=== PATIENT | male | born 2000 | race Caucasian/White ===

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

== ENCOUNTER 2023-03-27 19:09 | Emergency (ER) | payer SELFPAY ==
[2023-03-27] VITALS (10 sets, daily range): BP systolic 114–145; BP diastolic 57–114; PULSE 65–108; RESP 16–35; TEMP 36.5–36.8; O2SAT 94–100; BMI 28.7
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
[2023-03-27] MEDS: ETOMIDATE 40MG/20ML VIAL 30 MG IV (19:26)
[2023-03-27] MEDS: SUCCINYLCHOLINE 20MG/ML 10 ML MDV 150 MG IV (19:26)
--- NOTE | 2023-03-27 19:27 | PC.NURSE ---
Dr Edmonds at bedside placing ET tube with Dr Paula assistance. 7.5 ETT, 22 at the teeth
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
[2023-03-27] MEDS: propofoL 100 ML 5.44000000000000039 MG IV ×2 (19:39)
[2023-03-27] MEDS: MIDAZOLAM 2MG/2ML VIAL 2 MG IV (19:39)
--- NOTE | 2023-03-27 19:45 | PC.NURSE ---
TITRATION INCR TO ACHIEVE SEDATION PER MD VERBAL ORDER.CURRENT RATE 20 MCG/HR.
[2023-03-27] MEDS: FENTANYL CITRATE/PF 1,000 MCG in 0.9 % SODIUM CHLORIDE 80 ML 2.5 MCG IV (19:58)
--- NOTE | 2023-03-27 20:00 | PC.NURSE ---
TITRATION CONTINUES TO ACHIEVE SEDATION. TITRATED TO 40, THEN 50 MCG PER NURSING AT BEDSIDE WHILE THIS NURSE IS ARRANGING TRANSPORT.
--- NOTE | 2023-03-27 20:05 | PC.NURSE ---
INCREASED TITRATION TO 30 MCG TO ACHIEVE SEDATION.
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
--- NOTE | 2023-03-27 20:30 | PC.NURSE ---
fentanyl drip increased to 50mcg/hr
--- NOTE | 2023-03-27 20:35 | PC.NURSE ---
fentanyl drip increased to 75mcg/hr
== END 2023-03-27 23:19 | disposition other institution (70) ==
PROVIDERS: Emergency Provider Student in an Organized Health Care Education/Training Program
DX: R41.82 Altered mental status, unspecified; G93.40 Encephalopathy, unspecified; S01.81XA Laceration without foreign body of other part of head, initial encounter; V89.9XXA Person injured in unspecified vehicle accident, initial encounter
CPT/HCPCS: 31500; 71045; 72170; 96374; 99291; J0330; J2704

== ENCOUNTER 2023-04-20 11:10 | Outpatient (CLI) | payer OTHER, BC, SELFPAY | END 2023-04-20 23:59 | LOC: RT 11:13 | PROVIDERS: PCP Nurse Practitioner; Visit Provider Nurse Practitioner | DX: R00.2 Palpitations (principal) | CPT/HCPCS: 93225 ==

== ENCOUNTER 2023-05-17 07:31 | Outpatient (CLI) | payer OTHER, SELFPAY ==
--- NOTE | 2023-05-17 07:37 | CA_ITS ---
APPROVED REPORT EXAM: Comprehensive 2D, Doppler, and color-flow Echocardiogram Title Abstractor: Ciara Howard CRT Ht: 5 ft 11 in Wt: 176lbs BSA: 2.00 BP: 129/74 mmHg Indications: Chest Pain, Syncope, Fatigue 2D Dimensions LA Volume 15.20 mL LA Volume Index 7.40 mL/m2 (M/F) 16-34 M-Mode Dimensions RVDd 3.28 cm (0.9-2.6) LA Diam 2.84 cm (1.9-4.0) LVDd 4.27 cm (3.5-5.7) LVDs 2.66 cm (3.5-5.7) IVSd 0.98 cm (0.6-1.1) PWd 0.95 cm (0.6-1.1) EF (Teich) 68.20% FS 37.70% EDV (Teich) 81.70 mL TAPSE 2.00 (<1.7) ESV (Teich) 26.00 mL LV Diastology E Decel Time 243 (160-240 msec) E/A Ratio 1.80 MED A' 9.70 cm/s LAT A' 9.40 cm/s Aortic Valve AO Peak GR. 3.90 mmHg Mitral Valve MV A Velocity 49.0 (40-130 cm/s) E/A Ratio 1.80 Pulmonary Valve PV Peak Velocity 153.0 (50-150 cm/s) Tricuspid Valve TR P. Velocity 199.00 cm/s RAP Estimate 10.00 mmHg RVSP 25.80 mmHg Left Ventricle The left ventricle is normal size. The left ventricular systolic function is normal. The left ventricular ejection fraction is within the normal range. There is normal left ventricular wall thickness. There is normal LV segmental wall motion. The left ventricular diastolic function is normal. LVEF is 55%. Right Ventricle The right ventricle is normal size. The right ventricular systolic function is normal. Atria The left atrium size is normal. The right atrium size is normal. There is no Doppler evidence of interatrial shunt. Aortic Valve The aortic valve is trileaflet. The aortic valve opens well. There is no aortic valvular stenosis. No aortic regurgitation is present. Mitral Valve The mitral valve is normal in structure. No evidence of mitral valve stenosis. There is no mitral valve regurgitation noted. Tricuspid Valve The tricuspid valve leaflets are thin and pliable. Mild tricuspid regurgitation. RVSP is normal. Pulmonic Valve The pulmonary valve is normal in structure. Mild pulmonic regurgitation. Great Vessels The aortic root is normal in size. The ascending aorta is not well-visualized. IVC is normal in size and collapses >50% with inspiration. Pericardium There is no pericardial effusion. Other Information Study Quality: Adequate Conclusion Normal biventricular systolic function. Mild TR, mild PI. Electronically signed by : Nelia Rainey MD 05/17/2023 11:17:42
[2023-05-17 08:49] VITALS: BMI 24.4
[2023-05-17] MEDS: IVABRADINE HCL 7.5MG TABLET PO (09:10)
[2023-05-17] MEDS: METOPROLOL TARTRATE 50MG TABLET PO (09:10)
[2023-05-17 09:21] LABS: Anion Gap 12.2 mEq/L (5-15); Blood Urea Nitrogen 9 mg/dl (9-20); Carbon Dioxide 27 mmol/L (22.0-30.0); Chloride 105 mmol/L (98-107); Creatinine Clearance Estimated 129 mL/min (50-200); Estimated Glomerular Filt Rate 93 ml/min (>60); GFR (African American) 112 ML/MIN (>60); Glucose 94 mg/dl (74-100); Potassium 4.2 mmoL/L (3.5-5.1); Sodium 140 mmol/L (136-145)
--- NOTE | 2023-05-17 09:34 | CT_ITS ---
APPROVED REPORT Block Saw Operator: CLINICAL INDICATION Chest Pain TECHNIQUE Image Acquisition: A 128 slice MDCT scanner ([employer] View) was used for data acquisition. A noncontrast coronary calcium scan was performed. A CT attenuation threshold of 130 Hounsfield units (HU) was used for the detection of calcium in contiguous voxels of 1 sq mm in area to be counted as individual lesions. Bolus tracking in the ascending aorta with a threshold of 180 HU was performed. Immediately afterwards, ECG synchronized cardiac CT was then performed from the cardiac base to apex using retrospective gating with ECG tube current modulation. A total of 85 mL of Isovue 370 mg/mL contrast medium was administered at 5 mL/sec followed by a saline flush using a biphasic injection protocol. A tube voltage of 120 KVp was used. The patient received the following medications prior to the cardiac CT. 50 mg of oral metoprolol 15 mg of oral ivabradine 0.4 mg of sublingual nitroglycerin The average heart rate at the time of acquisition was 60 bpm and regular. Image Reconstruction Transaxial images were reconstructed at 0.67 mm slide thickness. Data was reviewed interactively on an advanced workstation capable of 2 and 3-dimensional displays in all conventional reconstruction formats, including multiplanar reformations, maximum intensity projections, curved multiplanar reformations, and volume rendered reconstructions. When applicable, selected routine images describing the relevant coronary anatomy and pathology were saved and sent to PACS. Complications None Technical Quality Overall image quality was good. Coronary artery opacification was adequate. Total DLP (Dose-Length Product) is 1285.4 mGy-cm. The reported value represents the total of one or more individual components during the CT acquisition of this date and at this time, and as such, the same value may appear in more than one CT report depending on the interpreting/reporting physicians. COMPARISON None FINDINGS CT Coronary Calcium Scoring LMA (Left Main Artery) = 0 LAD (Left Anterior Descending) = 0 LCX (Left Coronary Circumflex) = 0 RCA (Right Coronary Artery) = 0 Total Calcium Score = 0 using the AJ-130 method. The interpretation of the calcium heart score is based on the following continuum*: 0 = no calcified plaque detected (risk of coronary artery disease is very low ??? less than 5%) 1-10 = calcium detected in extremely minimal levels (risk of coronary diseases is still low ??? less than 10%) 11-100 = mild levels of plaque detected with certainty (mild or minimal narrowing of heart arteries is likely) 101-400 = definite,at least moderate levels of plaque detected (relatively high risk of a heart attack within 3-5 years) >401-999 = extensive levels of plaque detected (high risk of heart attack, high levels of vascular disease are present, high likelihood of at least one significant coronary narrowing) *The calcium heart score quantifies the burden of coronary calcification/plaque in the coronary arteries. The calcium heart score is not able to evaluate the presence or burden of non-calcified (i.e. soft) plaque. There is no identifiable calcification in the aortic valve, mitral annulus or mitral valve, pericardium, or myocardium. Coronary CT Angiography The coronary arterial system is right dominant. Quantitative Stenosis Grading: Left Main (LM): The left main originates normally from the left sinus of Valsalva. The LM bifurcates into the left anterior descending artery and left circumflex artery. The LM is patent with no evidence of atherosclerosis. Left Anterior Descending (LAD) and Diagonal Branches: The LAD gives off 4 diagonal branches. The LAD and its branches are patent with no evidence of atherosclerosis. There is no evidence of LAD-myocardial bridge. Left Circumflex (LCX) and Obtuse Marginals (OM): The LCX gives off 1 Obtuse Marginal (OM) branch(es). The LCX and its branches are patent with no evidence of atherosclerosis. Right Coronary Artery (RCA): The RCA originates normally from the right sinus of Valsalva. The RCA gives off a posterior descending artery (PDA) and posterolateral (PL) branches. The RCA and its branches are patent with no evidence of atherosclerosis. Non-Coronary Cardiac Findings: Analysis of the left ventricular (LV) structure and function was performed after 3-D reconstruction of the LV from axial images, with user-corrected automatic contouring for assessment of LV volumes and user-defined reconstruction from oblique planes for measurement of 3-D cardiac structure and function. -The left ventricle systolic function is normal. -There is no left atrial appendage filling defect. Two right pulmonary veins and two left pulmonary veins drain normally into the left atrium. -No pericardial thickening or calcification. -Central and branch pulmonary arteries in the [id number] are unremarkable. -Thoracic aorta within the visualized thoracic aortic-branches in the [id number] is unremarkable. Extracardiac Structures No significant extra-cardiac findings. Note, however, that this study is focused on the cardiac findings. IMPRESSION -No coronary calcification with an Agatston score = 0 using the AJ-130 method. -No evidence of significant flow-limiting atherosclerosis of the coronary arteries. -No evidence of coronary anomalies or myocardial bridge. -CAD-RADS 0. Management recommendations per ACC/AHA guidelines*, as clinically appropriate. *Recommendations: CAD RADS 0: Reassurance. Consider non-atherosclerotic causes of chest pain. CAD RADS 1: Consider non-atherosclerotic causes of chest pain. Consider preventive therapy and risk factor modification. CAD RADS 2: Consider non-atherosclerotic causes of chest pain. Consider preventive therapy and risk factor modification, particularly for patients with nonobstructive plaque in multiple segments. CAD RADS 3: Consider further functional testing. Consider symptom-guided anti-ischemic and preventive pharmacotherapy as well as risk factor modification per published guideline statements. CAD RADS 4A: Consider further functional testing or invasive coronary angiography with revascularization per published guideline statements. Consider symptom-guided anti-ischemic and preventive pharmacotherapy as well as risk factor modification per published guideline statements. CAD RADS 4B: Invasive coronary angiography recommended with revascularization per published guideline statements. Consider symptom-guided anti-ischemic and preventive pharmacotherapy as well as risk factor modification per published guideline statements. CAD RADS 5: Consider invasive angiography and/or viability assessment with revascularization per published guideline statements. Consider symptom-guided anti-ischemic and preventive pharmacotherapy as well as risk factor modification per published guideline statements. CRITICAL RESULT None COMMUNICATION Per this written report The coronary and cardiac findings of this CCTA were reviewed, reported, and signed by Ranjit Rainey MD (Sewage Treatment Plant Operator) Conclusion Electronically signed by : Nelia Rainey MD 05/17/2023 11:14:33
[2023-05-17 09:36] VITALS: BP 116/74; PULSE 72; RESP 16; O2SAT 99
[2023-05-17] MEDS: NITROGLYCERIN 0.4MG SL TABLET SL (09:36)
[2023-05-17 09:39] VITALS: BP 92/54; PULSE 60; RESP 16; O2SAT 100
[2023-05-17 09:42] VITALS: BP 93/51; PULSE 62; RESP 16; O2SAT 100
[2023-05-17] MEDS: 0.9 % SODIUM CHLORIDE 50 ML VIAL IV (09:43)
[2023-05-17] MEDS: SODIUM CHLORIDE 0.9% 10ML SYR (RAD ONLY) 10 ML IV (09:43)
[2023-05-17] MEDS: IOPAMIDOL-370 (76%);100ML BOTTLE 85 ML IV (09:44)
[2023-05-17 09:53] VITALS: BP 102/71; PULSE 69; RESP 16; O2SAT 98
== END 2023-05-17 10:09 | disposition home or self-care (01) ==
LOC: RT 07:32 → RAD 08:49
PROVIDERS: PCP Family Medicine; Visit Provider Nurse Practitioner
DX: R07.9 Chest pain, unspecified (principal); R55 Syncope and collapse; Z82.49 Family history of ischemic heart disease and other diseases of the circulatory system; V87.7XXA Person injured in collision between other specified motor vehicles (traffic), initial encounter
CPT/HCPCS: 75571; 75574; 80048; 93306; Q9967

== ENCOUNTER 2023-06-18 08:00 | Outpatient (RCR) | payer BC, OTHER, SELFPAY | END 2023-06-18 09:30 | disposition home or self-care (01) | LOC: PT 08:00 | PROVIDERS: Visit Provider Nurse Practitioner | DX: M25.571 Pain in right ankle and joints of right foot (principal); M79.671 Pain in right foot; S92.901A Unspecified fracture of right foot, initial encounter for closed fracture; M54.2 Cervicalgia; V87.7XXA Person injured in collision between other specified motor vehicles (traffic), initial encounter | CPT/HCPCS: 97110; 97163; 97530 ==

== ENCOUNTER 2023-09-16 07:42 | Outpatient (CLI) | payer BC, OTHER, SELFPAY ==
[2023-09-16 08:21] LABS: Adenovirus F 40/41, stool Not Detected (NotDetected); Astrovirus Not Detected (NotDetected); Campylobacter Not Detected (NotDetected); Clostridium Difficile A/B, PCR Not Detected (NotDetected); Cryptosporidium Not Detected (NotDetected); Cyclospora Cayetanesis Not Detected (NotDetected); Entamoeba histolytica Not Detected (NotDetected); Enteroaggregative E coli Not Detected (NotDetected); Enteropathogenic E coli Not Detected (NotDetected); Enterotoxigenic E coli Not Detected (NotDetected); Giardia lamblia Not Detected (NotDetected); Norovirus Not Detected (NotDetected); Plesimonas Shigalloides, PCR Not Detected (NotDetected); Rotavirus A Not Detected (NotDetected); Salmonella, PCR Not Detected (NotDetected); Sapovirus Not Detected (NotDetected); Shiga-like toxin E coli Not Detected (NotDetected); Shigella Enterovasive E coli Not Detected (NotDetected); Vibrio Cholerae Not Detected (NotDetected); Vibrio, PCR Not Detected (NotDetected); Yersinia Entercolitica, PCR Not Detected (NotDetected)
== END 2023-09-16 23:59 | disposition home or self-care (01) ==
LOC: LAB.DROPOF 07:44
PROVIDERS: PCP Nurse Practitioner; Visit Provider Nurse Practitioner
DX: R19.7 Diarrhea, unspecified (principal)
CPT/HCPCS: 87507

== ENCOUNTER 2023-10-04 08:50 | Outpatient (CLI) | payer BC, OTHER, SELFPAY ==
--- NOTE | 2023-10-04 09:07 | US_ITS ---
FINAL REPORT CLINICAL HISTORY: DIARRHEA COMPARISON: None FINDINGS: Sonographic images of the abdomen were obtained. There is increased echogenicity of the liver consistent with fatty infiltration. The gallbladder has an unremarkable appearance without evidence of gallstones. There is no evidence of biliary ductal dilatation. The common hepatic duct measures 4 mm, which is within normal limits. Limited images of the pancreas are unremarkable. The spleen size is normal. The right kidney measures 11.4 cm in length. The left kidney measures 10.8 cm in length. There is normal renal echogenicity. There is no evidence of hydronephrosis. The aorta has an unremarkable appearance. Limited images of the inferior vena cava are unremarkable. IMPRESSION: Fatty infiltration of the liver. Otherwise unremarkable upper abdominal ultrasound. Reviewed, Interpreted and Dictated by Teddy Johnson III, MD Transcribed by Antoinette Dorado Authenticated and [facility]
== END 2023-10-04 23:59 | disposition home or self-care (01) ==
LOC: RAD 08:51
PROVIDERS: PCP Nurse Practitioner; Visit Provider Nurse Practitioner
DX: R19.7 Diarrhea, unspecified (principal)
CPT/HCPCS: 76700

== ENCOUNTER 2025-01-18 09:32 | Outpatient (CLI) | payer BC, SELFPAY ==
[2025-01-18 09:50] LABS: Hematocrit 45.6 % (42.0-52.0); Hemoglobin 15.4 g/dL (14.1-18.0); Immature Granulocytes % 0.6 %; Mean Corpuscular HGB Conc 33.8 g/dL (31.8-35.4); Mean Corpuscular Hemoglobin 30.3 pg (27.0-31.2); Mean Corpuscular Volume 89.6 fl (80-94); Nucleated Red Blood Cells % 0 %; Platelet Count 266 K/mm3 (142-424); Red Blood Count 5.09 M/mm3 (4.60-6.20); Red Cell Distribution Width-SD 41.3 fL; White Blood Count 11.2 K/mm3 (4.8-10.8)
[2025-01-18 10:25] LABS: Alanine Aminotransferase 41 U/L (12-78); Albumin Level 4.9 g/dl (3.5-5.0); Albumin/Globulin Ratio 1.8 (1.1-1.8); Alkaline Phosphatase 76 U/L (38-126); Anion Gap 13.4 mEq/L (5-15); Aspartate Amino Transferase 37 U/L (17-59); Bilirubin,Total 1.0 mg/dl (0.2-1.3); Blood Urea Nitrogen 9 mg/dl (9-20); Calcium 10.3 mg/dl (8.4-10.2); Carbon Dioxide 25 mmol/L (22.0-30.0); Chloride 102 mmol/L (98-107); Cholesterol 169 mg/dl (140-200); Creatinine,Serum 0.90 mg/dl (0.66-1.25); Estimated Glomerular Filt Rate 103 ml/min (>60); GFR (African American) 124 ML/MIN (>60); Globulin 2.7 g/dL (1.3-3.2); Glucose 103 mg/dl (74-100); HDL Cholesterol 44 mg/dl (40-60); Potassium 4.4 mmoL/L (3.5-5.1); Sodium 136 mmol/L (136-145); Total Protein,Serum 7.6 g/dl (6.3-8.2); Triglycerides 95 mg/dl (30-150)
[2025-01-18 10:43] LABS: 25-OH Vitamin D, Total 48.2 ng/mL (30-100)
[2025-01-18 11:16] LABS: Vitamin B12 776 pg/mL (239-931)
[2025-01-18 11:37] LABS: Hemoglobin A1C 5.6 % (4.0-6.0)
[2025-01-18 12:01] LABS: Folate 5.72 ng/mL
== END 2025-01-18 23:59 | disposition home or self-care (01) ==
LOC: LAB 09:35
PROVIDERS: PCP Nurse Practitioner; Visit Provider Nurse Practitioner
DX: F41.1 Generalized anxiety disorder (principal); R53.83 Other fatigue; E16.2 Hypoglycemia, unspecified; E78.2 Mixed hyperlipidemia; I10 Essential (primary) hypertension
CPT/HCPCS: 36415; 80053; 80061; 80178; 82306; 82607; 82746; 83036; 85025